=== PATIENT | female | born 1970 | race African-American/Black ===

== ENCOUNTER 2023-09-13 21:59 | Emergency (ER) | payer BC ==
[~2023-09-13 21:59] MED LIST: TRAMADOL; WELLBUTRIN
[2023-09-15] MEDS ORDERED: METR-167 MT (07:24)
[2023-09-15] MEDS ORDERED: AMOX1TAB16 MT (07:24)
== END 2023-09-14 00:03 | disposition left against medical advice (07) ==
LOC: ER 21:59
DX: R10.9 Unspecified abdominal pain (principal); Z53.21 Procedure and treatment not carried out due to patient leaving prior to being seen by health care provider

== ENCOUNTER 2023-09-15 07:01 | Emergency (ER) | payer BC ==
[~2023-09-15] VITALS: Ht 157.5 cm; Wt 86.0 kg
[2023-09-15 07:05] VITALS: O2SAT 97
[2023-09-15] MEDS ORDERED: METR-167 MT (07:24)
[2023-09-15] MEDS ORDERED: AMOX1TAB16 MT (07:24)
[2023-09-15] MEDS: AMOXICILLIN/POTASSIUM CLAVULANATE 875/125MG TAB PO ONE (07:39)
[2023-09-15] MEDS: METRONIDAZOLE 500MG TABLET PO ONE (07:40)
[2023-09-15] MEDS: LORAZEPAM 1MG TABLET PO ONE (07:43)
[2023-09-15 07:45] VITALS: BP 139/78; PULSE 99; RESP 19; TEMP 98
== END 2023-09-15 07:50 | disposition home or self-care (01) ==
LOC: ER 07:01
DX: K57.92 Diverticulitis of intestine, part unspecified, without perforation or abscess without bleeding (principal); Z98.890 Other specified postprocedural states
CPT/HCPCS: 99283